=== PATIENT | female | born 1990 | race Caucasian/White ===

== ENCOUNTER 2020-11-18 21:25 | Emergency (ER) | payer OTHER ==
[~2020-11-18] VITALS: Ht 157.5 cm; Wt 113.4 kg
[2020-11-18 23:30] VITALS: BP 109/62
[2020-11-18] MEDS ORDERED: DOXYCYCLINE 10100 M2 PO (23:44)
[2020-11-18] MEDS ORDERED: NORCO5 PO (23:44)
[2020-11-18] MEDS ORDERED: HYDROCODON-ACE1 EAC7 PO (23:44)
[2020-11-18] MEDS ORDERED: IBUPROFEN 800800 M1 PO (23:45)
== END 2020-11-18 23:30 | disposition home or self-care (01) ==
LOC: ER 21:25
DX: L03.116 Cellulitis of left lower limb (principal); R51.9 Headache, unspecified; F12.90 Cannabis use, unspecified, uncomplicated; F17.210 Nicotine dependence, cigarettes, uncomplicated